=== PATIENT | female | born 1975 | race Two or more races ===

== ENCOUNTER 2023-07-13 13:18 | Inpatient (IN) | payer OTHER ==
[~2023-07-13] VITALS: Ht 157.5 cm; Wt 68.0 kg
[2023-07-13] MEDS ORDERED: COZAAR50 MG PO (13:31)
[2023-07-13] MEDS ORDERED: MILLIPRED5 MG PO (13:31)
[2023-07-13] MEDS ORDERED: METHOTREXATE2.5 MG PO (13:32)
[2023-07-13] MEDS ORDERED: VITAMIN D310 MCG/1 M PO (13:32)
[2023-07-13 16:34] LABS: HEMATOCRIT 31.6 % (36.0-45.00); HEMOGLOBIN 10.1 g/dL (12.0-15.00); MEAN CELL VOLUME 83.9 fL (80.00-100.00); MEAN CORPUSCULAR HEMOGLOBIN 26.8 pg (27.00-32.0); MEAN CORPUSCULAR HGB CONC 31.9 g/dl (32.0-36.0); PLATELET COUNT 627 K/uL (150-450); RED BLOOD COUNT 3.77 M/uL (4.00-6.00)
[2023-07-13 16:45] LABS: ALBUMIN 3.3 gm/dL (3.4-5.0); ALKALINE PHOSPHATASE 84 U/L (50-136); ALT/SGPT 29 U/L (12-78); AMYLASE 82 U/L (25-115); ANION GAP 11 (10.0-20.0); AST/SGOT 12 U/L (15-37); BILIRUBIN TOTAL 0.48 mg/dL (0.3-1.2); BILIRUBIN,CONJUGATED < 0.10 mg/dL (0.0-0.2); BILIRUBIN,UNCONJUGATED 0.38 mg/dL (0.0-0.6); BLOOD UREA NITROGEN 30 mg/dL (7-18); BUN CREA RATIO 33 (7.0-25.0); CALCIUM 9.5 mg/dL (8.5-10.1); CARBON DIOXIDE 28 mEq/L (21-32); CHLORIDE 102 mmol/L (98-107); CREATININE SERUM 0.91 mg/dL (0.55-1.02); GFR 66.26; GLUCOSE FASTING 98 mg/dL (65-100); LIPASE 32 U/L (13-75); OSMOLALITY SERUM 280 MOSM/KG (275-295); POTASSIUM 4.11 mEq/L (3.5-5.1); SODIUM 137 mmol/L (136-145); TOTAL PROTEIN 7.4 gm/dL (6.4-8.2)
[2023-07-13 18:45] LABS: PH,URINE 6.5 (5.0-8.0); URINE APPEARANCE Clear; URINE BILIRRUBIN Negative (NEGATIVE); URINE BLOOD Negative; URINE COLOR Yellow; URINE GLUCOSE Negative (NEGATIVE); URINE LEUKOCYTE Small; URINE NITRATE Negative; URINE PROTEIN Trace (NEGATIVE); URINE UROBILINOGEN 0.2 E.U./dl
[2023-07-13 18:46] LABS: URINE BACTERIA 1734.8 uL (0.0-1933); URINE EPITHELIAL CELLS 24.1 uL (0.0-38.8); URINE RBC 25.5 uL (0.0-20.8); URINE WBC 56.7 uL (0.0-23.2)
[2023-07-13 20:58] LABS: PARTIAL THROMBOPLASTIN TIME 31.3 SECONDS (22.0-34.0); PROTHROMBIN TIME 10.5 SECONDS (9.0-11.5)
[2023-07-16 07:13] LABS: HEMATOCRIT 30.3 % (36.0-45.00); HEMOGLOBIN 9.7 g/dL (12.0-15.00); MEAN CELL VOLUME 83.9 fL (80.00-100.00); MEAN CORPUSCULAR HEMOGLOBIN 26.9 pg (27.00-32.0); MEAN CORPUSCULAR HGB CONC 32.1 g/dl (32.0-36.0); PLATELET COUNT 589 K/uL (150-450); RED BLOOD COUNT 3.62 M/uL (4.00-6.00); RED CELL DISTRIBUTION WIDTH 23.4 % (11.5-14.5)
[2023-07-16 20:07] LABS: ALBUMIN 2.8 gm/dL (3.4-5.0); BILIRUBIN TOTAL 0.23 mg/dL (0.3-1.2); CALCIUM 8.7 mg/dL (8.5-10.1); CREATININE SERUM 0.64 mg/dL (0.55-1.02); GFR 99.47; GLOBULINA 3.4 G/DL (2.4-3.5); POTASSIUM 3.86 mEq/L (3.5-5.1); TOTAL PROTEIN 6.2 gm/dL (6.4-8.2)
== END 2023-07-17 14:53 | disposition home or self-care (01) | DRG 419 ==
LOC: ER 13:19 → SURG 18:54 → SURH 18:54 → MEDI 07-14 10:20 → SURG 07-14 10:21
PROVIDERS: General Practice; Surgery; ADMIT Internal Medicine; ATTEND Internal Medicine
PROC: 0WQF4ZZ Repair Abdominal Wall, Percutaneous Endoscopic Approach (ICD-10-PCS; 2023-07-15)
PROC: 0FT44ZZ Resection of Gallbladder, Percutaneous Endoscopic Approach (ICD-10-PCS; principal; 2023-07-15 16:00)
PROC: BW40ZZZ Ultrasonography of Abdomen (ICD-10-PCS; 2023-07-16)
DX: K80.10 Calculus of gallbladder with chronic cholecystitis without obstruction (principal); I10 Essential (primary) hypertension; N20.0 Calculus of kidney

== ENCOUNTER 2024-08-24 17:43 | Inpatient (IN) | payer OTHER ==
[~2024-08-24] VITALS: Ht 157.5 cm; Wt 68.9 kg
[~2024-08-24 17:43] MED LIST: COZAAR50 MG PO; METHOTREXATE2.5 MG PO; MILLIPRED5 MG PO; VITAMIN D310 MCG/1 M PO
[2024-08-24] MEDS ORDERED: ACETAMINOPHEN WITH CODEINE 1 UDTAB TABLET PO ONE (19:15)
[2024-08-24] MEDS ORDERED: KETOROLAC TROMETHAMINE 30 MG VIAL IV ONE (19:30)
[2024-08-24 19:32] LABS: PH,URINE 5.5 (5.0-8.0); URINE APPEARANCE Cloudy; URINE BILIRRUBIN Negative (NEGATIVE); URINE BLOOD Negative; URINE COLOR Yellow; URINE GLUCOSE Negative (NEGATIVE); URINE KETONE 15 (NEGATIVE); URINE LEUKOCYTE Small; URINE NITRATE Negative; URINE PROTEIN 30 (NEGATIVE); URINE UROBILINOGEN 0.2 E.U./dl
[2024-08-24 19:36] LABS: URINE RBC 7.5 uL (0.0-20.8); URINE WBC 58.7 uL (0.0-23.2)
[2024-08-24 19:42] LABS: HEMATOCRIT 30.4 % (36.0-45.00); HEMOGLOBIN 9.3 g/dL (12.0-15.00); MEAN CELL VOLUME 70.9 fL (80.00-100.00); MEAN CORPUSCULAR HEMOGLOBIN 21.7 pg (27.00-32.0); MEAN CORPUSCULAR HGB CONC 30.6 g/dl (32.0-36.0); PLATELET COUNT 640 K/uL (150-450); RED BLOOD COUNT 4.29 M/uL (4.00-6.00); RED CELL DISTRIBUTION WIDTH 20.6 % (11.5-14.5)
[2024-08-24 19:46] LABS: URINE CAST 0.14 uL (0.0-1.40)
[2024-08-24 19:58] LABS: ALBUMIN 3.6 gm/dL (3.4-5.0); CALCIUM 9.2 mg/dL (8.5-10.1); CREATININE SERUM 0.99 mg/dL (0.55-1.02); GFR 59.87; GLOBULINA 3.9 G/DL (2.4-3.5); POTASSIUM 4.48 mEq/L (3.5-5.1); TOTAL PROTEIN 7.5 gm/dL (6.4-8.2)
[2024-08-24] MEDS ORDERED: MORPHINE SULFATE 4 MG/ML CARTRIDGE IV ONE (21:45)
[2024-08-24] MEDS ORDERED: 0.9 % SODIUM CHLORIDE 1,000 ML IV SCH ×2 (21:45→22:30)
[2024-08-24] MEDS ORDERED: CEFTRIAXONE SODIUM 2,000 MG in 0.9 % SODIUM CHLORIDE 100 ML IV SCH (22:32)
[2024-08-24] MEDS ORDERED: ACETAMINOPHEN 500 MG GEL..CAP PO PRN (22:45)
[2024-08-24] MEDS ORDERED: MORPHINE SULFATE 4 MG/ML CARTRIDGE IV PRN (22:45)
[2024-08-24] MEDS ORDERED: ONDANSETRON HCL 4 MG in 0.9 % SODIUM CHLORIDE 50 ML IV PRN (22:45)
[2024-08-24] MEDS ORDERED: KETOROLAC TROMETHAMINE 15 MG VIAL IV ONE (22:45)
[2024-08-25 01:10] LABS: INR 0.96; PARTIAL THROMBOPLASTIN TIME 26.9 SECONDS (22.0-34.0); PROTHROMBIN TIME 10.5 SECONDS (9.0-11.5)
[2024-08-25] MEDS ORDERED: IRON FUM,PS/FOLIC/BCOMP,C NO.9 1 CAP CAPSULE PO SCH (09:00)
[2024-08-25] MEDS ORDERED: TAMSULOSIN HCL 0.4 MG CAP PO SCH (09:00)
[2024-08-25] MEDS ORDERED: PREDNISONE 5 MG TABLET PO SCH (09:00)
[2024-08-25] MEDS ORDERED: FAMOTIDINE/PF 20 MG in 0.9 % SODIUM CHLORIDE 8 ML IV PUSH SCH (09:00)
[2024-08-25] MEDS ORDERED: LOSARTAN POTASSIUM 50 MG TABLET PO SCH (09:00)
[2024-08-25] MEDS ORDERED: CHLORHEXIDINE GLUCONATE 120 ML BOTTLE TOP ONE (16:45)
[2024-08-25] MEDS ORDERED: IOVERSOL 320 MG/ML - 100 ML VIAL IV ONE (16:45)
[2024-08-25 20:59] VITALS: BP 141/79; O2SAT 100
[2024-08-26 02:03] VITALS: BP 112/81; O2SAT 95
[2024-08-26 08:00] VITALS: BP 160/91; O2SAT 98
[2024-08-27 23:47] VITALS: BP 131/75; O2SAT 100
== END 2024-08-26 12:45 | disposition home or self-care (01) | DRG 661 ==
LOC: ER 17:46 → SEC-K 22:35 → O/R 22:35 → MEDI 22:35 → SEC-K 08-25 00:14 → O/R 08-25 08:29 → MEDI 08-25 18:43
PROVIDERS: Emergency Medicine; General Practice; Urology; ADMIT Student in an Organized Health Care Education/Training Program; ATTEND Student in an Organized Health Care Education/Training Program
PROC: BW21ZZZ Computerized Tomography (CT Scan) of Abdomen and Pelvis (ICD-10-PCS; 2024-08-24)
PROC: 0T778DZ Dilation of Left Ureter with Intraluminal Device, Via Natural or Artificial Opening Endoscopic (ICD-10-PCS; principal; 2024-08-25 12:45)
DX: N13.2 Hydronephrosis with renal and ureteral calculous obstruction (principal); N13.5 Crossing vessel and stricture of ureter without hydronephrosis; N39.0 Urinary tract infection, site not specified; E86.0 Dehydration; D64.9 Anemia, unspecified; I10 Essential (primary) hypertension

== ENCOUNTER 2025-04-08 09:55 | Inpatient (IN) | payer OTHER ==
[~2025-04-08] VITALS: Ht 157.5 cm; Wt 54.9 kg
[2025-04-08] MEDS ORDERED: ACETAMINOPHEN 500 MG GEL..CAP PO ONE (10:58)
[2025-04-08] MEDS ORDERED: KETOROLAC TROMETHAMINE 30 MG VIAL IU ONE (11:45)
[2025-04-08] MEDS ORDERED: 0.9 % SODIUM CHLORIDE 1,000 ML IV ONE (11:45)
[2025-04-08] MEDS ORDERED: KETOROLAC TROMETHAMINE 30 MG VIAL ONE (13:07)
[2025-04-08 13:32] LABS: BASO % 0.3 % (0.1-1.2); EOS # 0.05 (0.04-0.54); EOS % 0.2 % (0.7-7.0); LYMPH # 1.22 (1.18-3.74); LYMPH % 5.9 % (19.3-53.1); MEAN PLATELET VOLUME 8.60 fl (9.4-12.4); MONO # 1.36 (0.24-0.82); MONO % 6.6 % (4.7-12.5); NEUT # 17.67 (1.56-6.13); NEUT % 86.3 % (34.0-71.1); RED CELL DISTRIBUTION WIDTH 18.6 % (11.6-14.4)
[2025-04-08 13:52] LABS: BUN CREA RATIO 35.0 (7.0-25.0); CREATININE SERUM 0.52 mg/dL (0.55-1.02); GFR 125.86; GLUCOSE FASTING 80.0 mg/dL (65-100); OSMOLALITY SERUM 275.0 MOSM/KG (275-295)
[2025-04-08 14:23] LABS: URINE APPEARANCE Clear; URINE BILIRRUBIN Negative (NEGATIVE); URINE BLOOD Trace; URINE COLOR Yellow; URINE GLUCOSE Negative (NEGATIVE); URINE KETONE Trace (NEGATIVE); URINE LEUKOCYTE Negative; URINE NITRATE Negative; URINE PROTEIN 30 (NEGATIVE); URINE UROBILINOGEN 0.2 E.U./dl
[2025-04-08 14:26] LABS: URINE BACTERIA 116.3 uL (0.0-1933); URINE EPITHELIAL CELLS 23.0 uL (0.0-38.8); URINE RBC 30.9 uL (0.0-20.8); URINE WBC 12.1 uL (0.0-23.2)
[2025-04-08 15:25] LABS: URINE CAST 1.31 uL (0.0-1.40)
[2025-04-08 15:28] LABS: TYPE CELLS SQUAMOUS; URINE MUCUS SCANT
[2025-04-08] MEDS ORDERED: PIPERACILLIN/TAZOBACTAM SODIUM 3.375 GM VIAL IV ONE ×2 (15:45→16:57)
[2025-04-08] MEDS ORDERED: FAMOTIDINE/PF 20 MG in 0.9 % SODIUM CHLORIDE 8 ML IV PUSH SCH (16:14)
[2025-04-08] MEDS ORDERED: ONDANSETRON HCL 4 MG in 0.9 % SODIUM CHLORIDE 50 ML IV PRN (16:15)
[2025-04-08] MEDS ORDERED: LOSARTAN POTASSIUM 50 MG TABLET PO SCH (16:15)
[2025-04-08] MEDS ORDERED: MORPHINE SULFATE 2 MG/ML SYRINGE IV PRN (16:15)
[2025-04-08] MEDS ORDERED: 0.9 % SODIUM CHLORIDE 1,000 ML IV SCH ×3 (16:15→21:15)
[2025-04-08] MEDS ORDERED: FAMOTIDINE/PF 20 MG/2 ML VIAL ONE (16:57)
[2025-04-08] MEDS ORDERED: CIPROFLOXACIN IN 5 % DEXTROSE 200 ML IV SCH (17:00)
[2025-04-08 17:32] LABS: INR 1.0
[2025-04-08 17:44] LABS: ALT/SGPT 17.0 U/L (12-78); AST/SGOT 17.0 U/L (15-37); BILIRUBIN TOTAL 0.36 mg/dL (0.3-1.2); BILIRUBIN,CONJUGATED 0.1 mg/dL (0.0-0.2)
[2025-04-08 18:00] VITALS: BP 115/85; O2SAT 100
[2025-04-08 18:21] LABS: BUN CREA RATIO 30.0 (7.0-25.0); CREATININE SERUM 0.53 mg/dL (0.55-1.02); GFR 123.12; GLUCOSE FASTING 73.0 mg/dL (65-100); OSMOLALITY SERUM 274.0 MOSM/KG (275-295)
[2025-04-08] MEDS ORDERED: BUPIVACAINE HCL/MPF 0.5% 30ML VIAL ONE (19:58)
[2025-04-08] MEDS ORDERED: SUGAMMADEX SODIUM 200 MG/2 ML VIAL IV ONE (20:27)
[2025-04-08] MEDS ORDERED: KETOROLAC TROMETHAMINE 30 MG VIAL IV PRN (21:00)
[2025-04-08] MEDS ORDERED: ONDANSETRON HCL 2 MG/ML VIAL IV PRN (21:00)
[2025-04-09 00:30] VITALS: BP 111/64; O2SAT 100
[2025-04-09 08:28] VITALS: BP 113/78; O2SAT 98
[2025-04-09] MEDS ORDERED: LOSARTAN POTASSIUM 50 MG TABLET PO SCH (09:00)
[2025-04-09] MEDS ORDERED: LOSARTAN POTASSIUM 100 MG TABLET PO SCH (09:00)
[2025-04-09] MEDS ORDERED: PIPERACILLIN/TAZOBACTAM SODIUM 3.375 GM in DEXTROSE 5 % IN WATER 100 ML IV SCH (09:35)
[2025-04-09 13:27] LABS: BASO % 0.2 % (0.1-1.2); EOS # 0.12 (0.04-0.54); EOS % 0.8 % (0.7-7.0); LYMPH # 1.21 (1.18-3.74); LYMPH % 8.4 % (19.3-53.1); MEAN PLATELET VOLUME 9.30 fl (9.4-12.4); MONO # 0.92 (0.24-0.82); MONO % 6.4 % (4.7-12.5); NEUT # 12.02 (1.56-6.13); NEUT % 83.8 % (34.0-71.1); RED CELL DISTRIBUTION WIDTH 18.6 % (11.6-14.4)
[2025-04-09] MEDS ORDERED: MORPHINE SULFATE 2 MG/ML SYRINGE IV PRN (13:45)
[2025-04-09 13:56] LABS: BUN CREA RATIO 30.0 (7.0-25.0); CREATININE SERUM 0.37 mg/dL (0.55-1.02); GFR 186.4; GLUCOSE FASTING 95.0 mg/dL (65-100); OSMOLALITY SERUM 277.0 MOSM/KG (275-295)
[2025-04-09 16:49] VITALS: BP 98/66; O2SAT 96
[2025-04-10 01:21] VITALS: BP 117/76; O2SAT 100
[2025-04-10 07:52] LABS: BASO % 0.3 % (0.1-1.2); EOS # 0.29 (0.04-0.54); EOS % 3.2 % (0.7-7.0); LYMPH # 1.31 (1.18-3.74); LYMPH % 14.2 % (19.3-53.1); MEAN PLATELET VOLUME 9.10 fl (9.4-12.4); MONO # 0.70 (0.24-0.82); MONO % 7.6 % (4.7-12.5); NEUT # 6.83 (1.56-6.13); NEUT % 74.3 % (34.0-71.1); RED CELL DISTRIBUTION WIDTH 18.4 % (11.6-14.4)
[2025-04-10 08:00] VITALS: BP 117/82; O2SAT 98
== END 2025-04-10 14:02 | disposition home or self-care (01) | DRG 399 ==
LOC: ER 09:55 → SEC-K 17:03 → SURH 20:44
PROVIDERS: Emergency Medicine; General Practice; Internal Medicine; Surgery; ADMIT Student in an Organized Health Care Education/Training Program; ATTEND Student in an Organized Health Care Education/Training Program
PROC: 0WQF4ZZ Repair Abdominal Wall, Percutaneous Endoscopic Approach (ICD-10-PCS; 2025-04-08)
PROC: BW21YZZ Computerized Tomography (CT Scan) of Abdomen and Pelvis using Other Contrast (ICD-10-PCS; 2025-04-08)
PROC: BW21ZZZ Computerized Tomography (CT Scan) of Abdomen and Pelvis (ICD-10-PCS; 2025-04-08)
PROC: 0DTJ4ZZ Resection of Appendix, Percutaneous Endoscopic Approach (ICD-10-PCS; principal; 2025-04-08 21:30)
DX: K35.891 Other acute appendicitis without perforation, with gangrene (principal); K43.9 Ventral hernia without obstruction or gangrene; R10.31 Right lower quadrant pain